=== PATIENT | female | born 1965 | race Caucasian/White ===

== ENCOUNTER 2017-08-23 18:25 | Emergency (ER) | payer OTHER ==
[~2017-08-23 18:25] MED LIST: LEVO50IN PO; PRED20 PO; PROZ20CA11 PO; RANI150 PO; TOPR25TA2 PO; XANA1TAB6 PO
[2017-08-23 18:28] VITALS: BP 134/65; PULSE 54; RESP 12; TEMP 98.7; O2SAT 97
[2017-08-23] MEDS ORDERED: XANA2TAB2 PO (20:39)
[2017-08-23] MEDS ORDERED: LEVO-171 PO (20:39)
[2017-08-23] MEDS ORDERED: METO1TAB42 PO (20:39)
[2017-08-23] MEDS ORDERED: PROZ20CA11 PO (20:39)
[2017-08-23] MEDS ORDERED: ZOFR4TAB3 SL (20:39)
[2017-08-23] MEDS ORDERED: PANTOPRAZOLE SOD 40 MG DELAYED RELEASE TAB PO ONE (21:00)
[2017-08-23] MEDS ORDERED: ONDANSETRON ODT 4 MG TAB PO ONE (21:00)
[2017-08-23] MEDS ORDERED: ALUMINUM/MAGNESIUM/SIMETH 30 ML CUP PO ONE (21:00)
[2017-08-23] MEDS ORDERED: LIDOCAINE VISCOUS 2% SOLN 15 ML UDC SWISH-SWAL ONE (21:00)
--- NOTE | 2017-08-23 23:56 | RADRPT ---
EXAM DATE/TIME: 08/23/2017 23:25 [place] COMPARISON: No previous studies available for comparison. INDICATIONS : Right upper quadrant pain. MEDICAL HISTORY : Hypothyroidism. Palpatations. IBS Ulcer. PID. Endometriosis. PCOS. Osteoarthritis. Depression. An xiety. SURGICAL HISTORY : Laproscopic endometriosis and ovarian cyst removal. ENCOUNTER: Initial ACUITY: 1 day PAIN SCORE: 4/10 LOCATION: Right upper quadrant MEASUREMENTS: LIVER: 14.0 cm length COMMON DUCT: 4 mm RIGHT KIDNEY: 10.0 x 5.7 x 4.0 cm FINDINGS: Ultrasound of the upper abdomen demonstrates normal echogenicity of the liver. No intrahepatic or ext ra hepatic ductal dilatation is seen. There is hepatopedal flow through the portal vein. The pancrea s demonstrates no evidence of mass and there is no dilatation of the pancreatic duct. There is a sing le stone within the gallbladder without wall thickening or pericholecystic fluid measuring 1.6 cm. Th e right kidney is unremarkable. No free fluid is identified. CONCLUSION: 1. Cholelithiasis otherwise unremarkable exam Arturo Gutierrez MD on August 23, 2017 at 23:54 Board Certified Radiologist. This report was verified electronically.
--- NOTE | 2017-08-24 00:20 | PD ---
HPI Chief Complaint: GI Complaint Time Seen by Provider: 20:09 Travel History International Travel<30 days: No Contact w/Intl Traveler<30days: No Traveled to known affect area: No History of Present Illness HPI Patient is coming in complaining that she is having epigastric pain and abdominal pain her stool has been strange with tobacco-looking content to it she has seen Dr. Solis her primary doc whose asked her to collect stool and bring it to the lab however she has been unable to do so she reports having had ulcers in the past never had any bleeding ulcers she denies black stool she denies hematemesis she took nothing for the pain or for the nausea but when I tell her that I'm going to give her Zofran she says she has that she took and did nothing at home she says PFSH Past Medical History Anxiety: Yes Depression: Yes Heart Rhythm Problems: Yes (PALPATATIONS) Cardiovascular Problems: Yes (MVP, PALPITATIONS) Gastrointestinal Disorders: Yes (IBS) Immunizations Current: No (PT DOES NOT KNOW) Thyroid Disease: Yes Ulcer: Yes Tetanus Vaccination: < 5 Years ?: Not Past Surgical History Gynecologic Surgery: Yes (OVARIAN CYSTS & ENDOMETRIOSIS LAPROSCOPIC) Social History Alcohol Use: No Tobacco Use: Yes Substance Use: No Allergies-Medications (Allergen,Severity, Reaction): Coded Allergies: No Known Allergies (Verified , 06/07/15) Reported Meds & Prescriptions Reported Meds & Active Scripts Active Pepcid (Famotidine) 20 Mg Tab 20 Mg PO BID Zofran (Ondansetron HCl) 4 Mg Tab 4 Mg PO Q6HR PRN Reported Zofran Odt (Ondansetron Odt) 4 Mg Tab 4 Mg SL Q6HR PRN Metoprolol Succinate ER 24 HR (Metoprolol Succinate) 25 Mg Tab 25 Mg PO DAILY Levothyroxine (Levothyroxine Sodium) 300 Mcg Tab 300 Mcg PO DAILY Prozac (Fluoxetine HCl) 20 Mg Cap 20 Mg PO DAILY Xanax (Alprazolam) 2 Mg Tab 2 Mg PO Q6H PRN Review of Systems Except as stated in HPI: all other systems reviewed are Neg Gastrointestinal: Positive: Nausea, Abdominal Pain, Other (change in bowel habits) Physical Exam Narrative GENERAL: Thin body habitus in no distress awake alert oriented 3 nontoxic appearance SKIN: Warm and dry. HEAD: Atraumatic. Normocephalic. EYES: Pupils equal and round. No scleral icterus. No injection or drainage. ENT: No nasal bleeding or discharge. Mucous membranes pink and moist. NECK: Trachea midline. No JVD. CARDIOVASCULAR: Regular rate and rhythm. RESPIRATORY: No accessory muscle use. Clear to auscultation. Breath sounds equal bilaterally. GASTROINTESTINAL: Abdomen soft, mild epigastric-tender, nondistended. Hepatic and splenic margins not palpable. MUSCULOSKELETAL: Extremities without clubbing, cyanosis, or edema. No obvious deformities. Rectal exam guaiac negative brown stool NEUROLOGICAL: Awake and alert. No obvious cranial nerve deficits. Motor grossly within normal limits. Five out of 5 muscle strength in the arms and legs. Normal speech. PSYCHIATRIC: Appropriate mood and affect; insight and judgment normal. POC SONO GB large single stone with shadowing seen by this MD will order official GB SONO Data Data Last Documented VS Vital Signs Date Time Temp Pulse Resp B/P (MAP) Pulse Ox O2 Delivery O2 Flow Rate FiO2 08/23/17 18:28 98.7 54 12 134/65 (88) 97 Orders Orders Ondansetron Odt (Zofran Odt) (08/23/17 21:00) Pantoprazole (Protonix) (08/23/17 21:00) Lidocaine 2% Viscous (Xylocaine 2% Visco (08/23/17 21:00) Al-Mag Hy-Si 40-40-4 Mg/Ml Liq (Mag-Al P (08/23/17 21:00) Stool Ova And Parasite Screen (08/23/17 21:36) Us Abdomen Gallbladder (08/23/17 ) Urinalysis - C+S If Indicated (08/24/17 00:20) Ed Discharge Order (08/24/17 02:01) Labs Laboratory Tests Test 08/24/17 00:22 Urine Color LIGHT-YELLOW Urine Turbidity CLEAR Urine pH 6.0 Urine Specific [place] 1.002 Urine Protein NEG mg/dL Urine Glucose (UA) NEG mg/dL Urine Ketones NEG mg/dL Urine Occult Blood NEG Urine Nitrite NEG Urine Bilirubin NEG Urine Urobilinogen LESS THAN 2.0 MG/DL Urine Leukocyte Esterase NEG Urine Bacteria RARE /hpf Microscopic Urinalysis Comment CULT NOT INDICATED MDM Medical Decision Making Medical Screen Exam Complete: Yes Emergency Medical Condition: Yes Differential Diagnosis Patient has chronic epigastric pain versus gastritis versus ulcerative erosions versus gallbladder disease reports change in her stool possibly infectious diarrhea however she is unable to give a stool sample the entire time she is here Narrative Course Patient has normal labs a gallbladder ladder ultrasound shows a gallstone single in her gallbladder without any cholecystitis given her Protonix by mouth and Zofran by mouth she is unable to produce a stool sample I explained to her that in the emergency room there is nothing further that needs to be done she seems disappointed and says he still developed causing my pain I explained to her there is no emergency at this time after all the studies and she should follow up with her Dr. Solis who are ready has given her a specimen cup for stool sample which she seems to be unable to produce here in the ER as well as to her private doctor discharge diagnosis is abdomen pain NOS and gallstones seen by my ultrasound bedside Diagnosis Primary Impression: Abdominal discomfort Additional Impression: Gall bladder disease Patient Instructions: Gallstones (ED), General Instructions Scripts Famotidine (Pepcid) 20 Mg Tab 20 MG PO BID, #30 TAB 0 Refills Prov: Tavo Demarco MD 08/24/17 Ondansetron (Zofran) 4 Mg Tab 4 MG PO Q6HR Y for NAUSEA OR VOMITING, #12 TAB 0 Refills Prov: Tavo Demarco MD 08/24/17 Disposition: 01 DISCHARGE HOME Condition: Good Tavo Demarco MD Aug 24, 2017 00:20
[2017-08-24 00:48] LABS: BACTERIA, URINE RARE /hpf; BLOOD, URINE NEG (NEG); COMMENT (UR) CULT NOT INDICATED; CULTURE IF INDICATED CULT NOT INDICATED; GLUCOSE,URINE NEG (NEG); KETONE, URINE NEG (NEG); NITRITE,URINE NEG (NEG); URINE COLOR LIGHT-YELLOW (YELLW/STRAW)
[2017-08-24 01:30] VITALS: BP 130/60; PULSE 57; RESP 16; O2SAT 98
[2017-08-24] MEDS ORDERED: ZOFR4TAB PO (02:08)
[2017-08-24] MEDS ORDERED: FAMO1TAB37 PO (02:08)
== END 2017-08-24 02:31 | disposition home or self-care (01) ==
LOC: NEPC 18:25
DX: K82.9 Disease of gallbladder, unspecified (principal); R10.13 Epigastric pain; F41.9 Anxiety disorder, unspecified; F32.9 Major depressive disorder, single episode, unspecified; R00.2 Palpitations; K58.9 Irritable bowel syndrome, unspecified; E07.9 Disorder of thyroid, unspecified; Z72.0 Tobacco use; Z79.899 Other long term (current) drug therapy
CPT/HCPCS: 76705; 81001; 99284

== ENCOUNTER 2017-09-16 13:48 | Emergency (ER) | payer OTHER ==
[~2017-09-16] VITALS: Ht 167.6 cm; Wt 65.0 kg
[~2017-09-16 13:48] MED LIST changes: +FAMO1TAB37 PO; +LEVO-171 PO; -LEVO50IN PO; +METO1TAB42 PO; -PRED20 PO; -RANI150 PO; -TOPR25TA2 PO; -XANA1TAB6 PO; +XANA2TAB2 PO; +ZOFR4TAB PO; +ZOFR4TAB3 SL
[2017-09-16 13:50] VITALS: BP 117/61; PULSE 64; RESP 18; TEMP 97.6; O2SAT 100
[2017-09-16] MEDS ORDERED: PRIL20TA2 (15:31)
[2017-09-16] MEDS ORDERED: SODIUM CHLOR 0.9% 1000 ML INJ 1,000 ML IV SCH (16:22)
--- NOTE | 2017-09-16 16:23 | PD ---
HPI Chief Complaint: Agency Trainer Problem/Complaint Time Seen by Provider: 16:04 Travel History International Travel<30 days: No Contact w/Intl Traveler<30days: No Traveled to known affect area: No History of Present Illness HPI 51-year-old female presents emergency Department with complaint of heavy vaginal bleeding 6 days. Reports going to 4-5 pads and super tampons per day. Has been having irregular periods for the past few years. Her last menstrual period was 2 months ago. Reports feeling dizzy and lightheaded. Denies syncope. Denies chest pain, shortness of breath, abdominal pain, fever, vomiting. Denies dysuria. Denies urinary frequency. Reports having a foul vaginal odor for the past few months. Symptoms are moderate in severity. Denies pain. No known aggravating or relieving factors. Primary care provider is Dr. Solis. No known allergies. History of her palpitations and takes metoprolol. Has no other medical complaints. No other modifying factors or associated signs and symptoms. PFSH Past Medical History Anxiety: Yes Depression: Yes Heart Rhythm Problems: Yes (PALPATATIONS) Cardiovascular Problems: Yes (MVP, PALPITATIONS) Gastrointestinal Disorders: Yes (IBS) Immunizations Current: No (PT DOES NOT KNOW) Thyroid Disease: Yes Ulcer: Yes ?: Not LMP: 09/10/17 Past Surgical History Gynecologic Surgery: Yes (OVARIAN CYSTS & ENDOMETRIOSIS LAPROSCOPIC) Social History Alcohol Use: No Tobacco Use: Yes Substance Use: No Allergies-Medications (Allergen,Severity, Reaction): Coded Allergies: No Known Allergies (Verified Adverse Reaction, Unknown, 09/16/17) Reported Meds & Prescriptions Reported Meds & Active Scripts Active Reported Prilosec (Omeprazole Magnesium) 20 Mg Tab Zofran Odt (Ondansetron Odt) 4 Mg Tab 4 Mg SL Q6HR PRN Metoprolol Succinate ER 24 HR (Metoprolol Succinate) 25 Mg Tab 25 Mg PO DAILY Levothyroxine (Levothyroxine Sodium) 300 Mcg Tab 300 Mcg PO DAILY Prozac (Fluoxetine HCl) 20 Mg Cap 20 Mg PO DAILY Xanax (Alprazolam) 2 Mg Tab 2 Mg PO Q6H PRN Review of Systems Except as stated in HPI: all other systems reviewed are Neg Physical Exam Narrative GENERAL: Well-nourished, well-developed female patient, in no acute distress SKIN: Warm and dry. HEAD: Atraumatic. Normocephalic. EYES: Pupils equal and round. No scleral icterus. No injection or drainage. ENT: Mucosa pink and moist. Airway patent. NECK: Trachea midline. CARDIOVASCULAR: Regular rate and rhythm. No murmur appreciated. RESPIRATORY: No accessory muscle use. Clear to auscultation. Breath sounds equal bilaterally. GASTROINTESTINAL: Abdomen soft, non-tender, nondistended. Hepatic and splenic margins not palpable. Bowel sounds are active 4 quadrants. MUSCULOSKELETAL: No obvious deformities. No clubbing. No cyanosis. No edema. NEUROLOGICAL: Awake and alert. Oriented 3. No obvious cranial nerve deficits. Motor grossly within normal limits. Normal speech. PSYCHIATRIC: Appropriate mood and affect; insight and judgment normal. Data Data Last Documented VS Vital Signs Date Time Temp Pulse Resp B/P (MAP) Pulse Ox O2 Delivery O2 Flow Rate FiO2 09/16/17 13:50 97.6 64 18 117/61 (79) 100 Orders Orders Basic Metabolic Panel (Bmp) (09/16/17 16:22) Complete Blood Count With Diff (09/16/17 16:22) Urinalysis - C+S If Indicated (09/16/17 16:22) Iv Access Insert/Monitor (09/16/17 16:22) Sodium Chlor 0.9% 1000 Ml Inj (Ns 1000 M (09/16/17 16:22) Sodium Chloride 0.9% Flush (Ns Flush) (09/16/17 16:30) Beta Hcg (Quant/Titer) (09/16/17 17:42) Labs Laboratory Tests Test 09/16/17 16:45 White Blood Count 6.4 TH/MM3 Red Blood Count 3.91 MIL/MM3 Hemoglobin 10.2 GM/DL Hematocrit 30.9 % Mean Corpuscular Volume 79.1 FL Mean Corpuscular Hemoglobin 26.1 PG Mean Corpuscular Hemoglobin Concent 33.0 % Red Cell Distribution Width 21.3 % Platelet Count 238 TH/MM3 Mean Platelet Volume 8.1 FL Neutrophils (%) (Auto) 48.6 % Lymphocytes (%) (Auto) 41.9 % Monocytes (%) (Auto) 6.1 % Eosinophils (%) (Auto) 2.3 % Basophils (%) (Auto) 1.1 % Neutrophils # (Auto) 3.1 TH/MM3 Lymphocytes # (Auto) 2.7 TH/MM3 Monocytes # (Auto) 0.4 TH/MM3 Eosinophils # (Auto) 0.1 TH/MM3 Basophils # (Auto) 0.1 TH/MM3 CBC Comment DIFF FINAL Differential Comment Urine Color LIGHT-RED Urine Turbidity MARKED Urine pH 6.0 Urine Specific [place] 1.007 Urine Protein 100 mg/dL Urine Glucose (UA) NEG mg/dL Urine Ketones NEG mg/dL Urine Occult Blood LARGE Urine Nitrite NEG Urine Bilirubin NEG Urine Urobilinogen LESS THAN 2.0 MG/DL Urine Leukocyte Esterase NEG Urine RBC /hpf Microscopic Urinalysis Comment CULT NOT INDICATED Blood Urea Nitrogen 4 MG/DL Creatinine 0.76 MG/DL Random Glucose 63 MG/DL Calcium Level 8.5 MG/DL Sodium Level 136 MEQ/L Potassium Level 3.5 MEQ/L Chloride Level 104 MEQ/L Carbon Dioxide Level 27.7 MEQ/L Anion Gap 4 MEQ/L Estimat Glomerular Filtration Rate 80 ML/MIN MDM Medical Decision Making Medical Screen Exam Complete: Yes Emergency Medical Condition: Yes Medical Record Reviewed: Yes Differential Diagnosis Menorrhagia, dysmenorrhea, vaginal bleeding Narrative Course 51-year-old female with vaginal bleeding 6 days. Less than 2. 2 months ago. Denies pain. Denies urinary symptoms. Reports foul vaginal odor for the past few minutes; denies abnormal discharge prior to onset of bleeding. Declines pelvic exam. Says she will follow up with her primary care provider in regards to vaginal odor. CBC, BMP, urinalysis ordered. 1750: I discussed the patient with Dr. Keating, my attending physician, and he agrees with my plan of care. He did recommend to add beta hCG. Recommends follow-up with primary care provider if hemoglobin is stable. 1800: Hemoglobin 10.2. 1843: BMP unremarkable. Beta hCG less than 1. Instructed patient to follow up with lead network architect within one day. Instructed patient to follow up with primary care provider. Patient verbalizes understanding and agreement with treatment plan. Patient is medically cleared and stable for discharge. Discussed reasons to return to the emergency department. Patient agrees with treatment plan. The patients vital signs are stable and the patient is stable for outpatient follow-up and treatment. Patient discharged home, stable and in no acute distress. Diagnosis Primary Impression: Menorrhagia Qualified Codes: N92.1 - Excessive and frequent menstruation with irregular cycle Referrals: Science Specialist Primary Care Physician Patient Instructions: General Instructions, Menorrhagia (ED) Additional Instructions: Follow-up with lead network architect; call and make an appointment within one day Follow-up with primary care provider Return to the emergency department immediately with worsening of symptoms Med/Other Pt SpecificInfo: No Change to Meds, No Meds Exist/No RX given Disposition: 01 DISCHARGE HOME Condition: Stable Grecia Gonsalez Sep 16, 2017 16:23
[2017-09-16] MEDS ORDERED: SODIUM CHLORIDE 0.9% FLUSH 10 ML FLUSH IV FLUSH PRN (16:30)
[2017-09-16 17:30] LABS: AUTOMATED NEUTROPHIL # 3.1 TH/MM3 (1.8-7.7); BASOPHIL # 0.1 TH/MM3 (0-0.2); BASOPHIL % 1.1 % (0.0-2.0); EOSINOPHIL # 0.1 TH/MM3 (0-0.4); EOSINOPHIL % 2.3 % (0.0-4.0); HEMATOCRIT 30.9 % (35.0-46.0); HEMO FLAGS DIFF FINAL; LYMPH % 41.9 % (9.0-44.0); LYMPHOCYTE # 2.7 TH/MM3 (1.0-4.8); MEAN CELL VOLUME 79.1 FL (80.0-100.0); MEAN CORPUSCULAR HEMOGLOBIN 26.1 PG (27.0-34.0); MONO % 6.1 % (0.0-8.0); NEUT % 48.6 % (16.0-70.0); PLATELET COUNT 238 TH/MM3 (150-450); RED BLOOD COUNT 3.91 MIL/MM3 (4.00-5.30); RED CELL DISTRIBUTION WIDTH 21.3 % (11.6-17.2); WHITE BLOOD COUNT 6.4 TH/MM3 (4.0-11.0)
[2017-09-16 17:39] LABS: BLOOD, URINE LARGE (NEG); GLUCOSE,URINE NEG (NEG); KETONE, URINE NEG (NEG); NITRITE,URINE NEG (NEG); URINE COLOR LIGHT-RED (YELLW/STRAW)
[2017-09-16 17:40] LABS: COMMENT (UR) CULT NOT INDICATED; CULTURE IF INDICATED CULT NOT INDICATED
[2017-09-16 17:49] LABS: BICARBONATE 27.7 MEQ/L (21.0-32.0); POTASSIUM 3.5 MEQ/L (3.5-5.1)
[2017-09-16 18:40] LABS: BETA HCG QUANT LESS THAN 1 MIU/ML (0-5)
== END 2017-09-16 18:52 | disposition home or self-care (01) ==
LOC: NEPD 13:48
DX: N92.0 Excessive and frequent menstruation with regular cycle (principal); R42 Dizziness and giddiness; F41.9 Anxiety disorder, unspecified; F32.9 Major depressive disorder, single episode, unspecified; R00.2 Palpitations; E07.9 Disorder of thyroid, unspecified; Z72.0 Tobacco use; Z87.19 Personal history of other diseases of the digestive system; Z79.899 Other long term (current) drug therapy
CPT/HCPCS: 80048; 81001; 84702; 85025; 96360; 99284; J7030